=== PATIENT | female | born 1995 | race American Indian/Alaskan Native ===

== ENCOUNTER 2017-07-05 19:15 | Emergency (ER) | payer MEDICAID ==
[2017-07-05 19:46] VITALS: BP 113/68; PULSE 90; RESP 18; O2SAT 99
--- NOTE | 2017-07-05 20:16 | ED PDOC ---
HPI: Abdomen Time Seen by Provider: 07/05/17 20:03 Chief Complaint (Nursing): Abdominal Pain Chief Complaint (Provider): abdominal pain History Per: Patient History/Exam Limitations: no limitations Onset/Duration Of Symptoms: Days (3), Waxing/Waning Current Symptoms Are (Timing): Gone Now Location Of Pain/Discomfort: Diffuse Quality Of Discomfort: Sharp, Cramping Last Bowel Movement: Today Additional History Per: Patient Additional Complaint(s): 21 y/o female presents with intermittent diffuse abdominal pain x 3 days. Associated nausea. Patient describes pain as "sharp, crampy". Denies fever, vomiting, cough, congestion, chest pain, shortness of breath, palpitations, changes in bowel movements, urinary symptoms, vaginal bleeding/discharge. Abnormal Vaginal Bleeding: No Last Menstral Period: 06/13/17 Past Medical History Reviewed: Historical Data, Nursing Documentation, Vital Signs Vital Signs: Last Vital Signs Temp 98.5 F 07/05/17 20:49 Pulse 90 07/05/17 19:41 Resp 18 07/05/17 19:41 BP 113/68 07/05/17 19:41 Pulse Ox 99 07/05/17 20:16 - Medical History PMH: No Chronic Diseases - Surgical History Surgical History: No Surg Hx - Family History Family History: States: Unknown Family Hx - Home Medications Home Medications: Ambulatory Orders Medication Instructions Recorded Dicyclomine [Bentyl] 20 mg PO Q6 PRN #12 tab 11/13/16 Famotidine [Pepcid] 40 mg PO DAILY #10 tab 11/13/16 Ondansetron [Zofran] 4 mg PO Q8H #8 tab 11/13/16 Dicyclomine [Bentyl] 20 mg PO TID PRN #21 tab 07/05/17 Ondansetron ODT [Zofran ODT] 4 mg PO Q8 PRN #10 odt 07/05/17 - Allergies Allergies/Adverse Reactions: Allergies Allergy/AdvReac Type Severity Reaction Status Date / Time No Known Allergies Allergy Verified 11/13/16 13:56 Review of Systems ROS Statement: Except As Marked, All Systems Reviewed And Found Negative Gastrointestinal: Positive for: Nausea, Abdominal Pain Physical Exam - Reviewed Nursing Documentation Reviewed: Yes Vital Signs Reviewed: Yes - Physical Exam Appears: Positive for: Well, Non-toxic, No Acute Distress Head Exam: Positive for: ATRAUMATIC, NORMAL INSPECTION, NORMOCEPHALIC Skin: Positive for: Normal Color Eye Exam: Positive for: Normal appearance ENT: Positive for: Normal ENT Inspection Cardiovascular/Chest: Positive for: Regular Rate, Rhythm Respiratory: Positive for: Normal Breath Sounds Gastrointestinal/Abdominal: Positive for: Normal Exam, Bowel Sounds, Soft. Negative for: Tenderness Back: Positive for: Normal Inspection Extremity: Positive for: Normal ROM Neurologic/Psych: Positive for: Alert, Oriented - Laboratory Results Result Diagrams: 07/05/17 20:26 07/05/17 20:52 - ECG O2 Sat by Pulse Oximetry: 99 - Progress ED Course And Treament: labs, urine Patient remains symptom-free throughout ED visit; resting comfortably. Patient educated on findings, discharged with rx rosario miguel. Advised follow up PMD 2-3 days. Return to ED for worsening/concerning symptoms. Disposition - Clinical Impression Clinical Impression: Abdominal pain - Patient ED Disposition Is Patient to be Admitted: No Counseled Patient/Family Regarding: Studies Performed, Diagnosis, Need For Followup, Rx Given - Disposition Disposition: Routine/Home Disposition Time: 21:35 Condition: GOOD Prescriptions: Dicyclomine [Bentyl] 20 mg PO TID PRN #21 tab PRN Reason: Pain, Mild (1-3) Ondansetron ODT [Zofran ODT] 4 mg PO Q8 PRN #10 odt PRN Reason: Nausea/Vomiting Instructions: Abdominal Pain (ED)
[2017-07-05 20:49] VITALS: TEMP 98.5
[2017-07-05 20:59] LABS: BASO % 0.6 % (0.0-2.0); EOS # 0.1 K/uL (0.0-0.7); EOS % 1.1 % (0.0-4.0); HEMATOCRIT 38.7 % (34.0-47.0); LYMPH # 2.9 K/uL (1.0-4.3); LYMPH % 40.5 % (20.0-40.0); MEAN CELL VOLUME 70.5 fl (81.0-99.0); MEAN CORPUSCULAR HEMOGLOBIN 21.7 pg (27.0-31.0); MEAN CORPUSCULAR HGB CONC 30.8 g/dL (33.0-37.0); MEAN PLATELET VOLUME 7.8 fl (7.2-11.7); MONO # 0.7 K/uL (0.0-0.8); MONO % 9.2 % (0.0-10.0); NEUT # 3.5 K/uL (1.8-7.0); NEUT % 48.6 % (50.0-75.0); NRBC % 0.2 % (0.0-0.0); RED CELL DISTRIBUTION WIDTH 14.1 % (11.5-14.5); WHITE BLOOD COUNT 7.2 K/uL (4.8-10.8)
[2017-07-05 21:08] LABS: RBC URINE 11 /hpf (0-3); URINE BACTERIA FEW (<OCC); URINE BILIRUBIN NEGATIVE (NEGATIVE); URINE BLOOD NEGATIVE (NEGATIVE); URINE COLOR YELLOW (YELLOW); URINE GLUCOSE (UA) NEG (Normal); URINE KETONE 20 mg/dL (NEGATIVE); URINE LEUKOCYTE ESTERASE SMALL Leu/uL (Negative); URINE PROTEIN 30 mg/dL (NEGATIVE); URINE UROBILINOGEN 0.2-1.0 mg/dL (0.2-1.0); WBC URINE 3 /hpf (0-5)
[2017-07-05 21:10] LABS: ALB/GLOB RATIO 1.4 (1.0-2.1); ALKALINE PHOSPHATASE 66 U/L (38-126); ALT/SGPT 24 U/L (9-52); AST/SGOT 31 U/L (14-36); BILIRUBIN,TOTAL 0.6 mg/dl (0.2-1.3); BLOOD UREA NITROGEN 10 mg/dl (7-17); CALCIUM 10.1 mg/dL (8.4-10.2); CARBON DIOXIDE 22 mmol/L (22-30); CHLORIDE 102 mmol/L (98-107); GFR AFRICAN-AMERICAN > 60; GLUCOSE,RANDOM 119 mg/dL (65-105); LIPASE 74 U/L (23-300); POTASSIUM 3.4 MMOL/L (3.6-5.0); SODIUM 143 mmol/l (132-148); TOTAL PROTEIN 8.5 G/DL (6.3-8.2)
== END 2017-07-05 21:51 | disposition home or self-care (01) ==
LOC: H.ER 19:15
DX: R10.9 Unspecified abdominal pain (principal); R11.0 Nausea

== ENCOUNTER 2017-10-28 08:49 | Emergency (ER) | payer MEDICAID ==
[2017-10-28 08:54] VITALS: BMI 25.7
[2017-10-28 08:55] VITALS: BP 109/63; PULSE 78; RESP 16; TEMP 99; O2SAT 98
[2017-10-28] MEDS ORDERED: Sodium Chloride 0.9% 1,000 ML IV STA (10:24)
[2017-10-28] MEDS ORDERED: Morphine 4 MG/ML VIAL ONE (10:31)
[2017-10-28] MEDS ORDERED: Sodium Chloride 0.9% 50 ML IV ONE (10:35)
[2017-10-28] MEDS ORDERED: Iohexol 300 100 ML IJ ONE (10:35)
[2017-10-28] MEDS ORDERED: Morphine 4 MG/ML VIAL IV STA (10:45)
[2017-10-28 10:51] LABS: BASO % 0.5 % (0.0-2.0); EOS # 0.1 K/uL (0.0-0.7); EOS % 1.5 % (0.0-4.0); HEMOGLOBIN 11.2 g/dL (12.0-16.0); LYMPH % 33.9 % (20.0-40.0); MEAN CORPUSCULAR HEMOGLOBIN 21.8 pg (27.0-31.0); MEAN CORPUSCULAR HGB CONC 31.2 g/dL (33.0-37.0); MEAN PLATELET VOLUME 7.7 fl (7.2-11.7); MONO # 0.6 K/uL (0.0-0.8); MONO % 10.3 % (0.0-10.0); NEUT # 3.2 K/uL (1.8-7.0); NEUT % 53.8 % (50.0-75.0); NRBC % 0.1 % (0.0-0.0); RBC 5.12 Mil/uL (3.80-5.20); RED CELL DISTRIBUTION WIDTH 14.6 % (11.5-14.5)
--- NOTE | 2017-10-28 10:54 | ED PDOC ---
HPI: Abdomen Time Seen by Provider: 10/28/17 09:42 Chief Complaint (Nursing): Abdominal Pain Chief Complaint (Provider): Abdominal Pain History Per: Patient History/Exam Limitations: no limitations Onset/Duration Of Symptoms: Days (1 day ago) Current Symptoms Are (Timing): Still Present Additional Complaint(s): 22 y/o female presents to the ED complaining of left sided abdominal pain, onset of 1 day ago. Patient reports of having abdominal pain, nausea, with non- bloody vomiting and diarrhea after eating fast food yesterday. She denies any fever or urinary problems. Past Medical History Reviewed: Historical Data, Nursing Documentation, Vital Signs Vital Signs: Last Vital Signs Temp 99 F 10/28/17 08:54 Pulse 78 10/28/17 08:54 Resp 16 10/28/17 08:54 BP 109/63 10/28/17 08:54 Pulse Ox 98 10/28/17 12:18 - Medical History PMH: No Chronic Diseases - Surgical History Surgical History: No Surg Hx - Family History Family History: States: Unknown Family Hx - Social History Current smoker - smoking cessation education provided: No Ex-Smoker (has not smoked in the last 12 months): No Alcohol: None Drugs: Denies - Home Medications Home Medications: Ambulatory Orders Medication Instructions Recorded Dicyclomine [Bentyl] 20 mg PO Q6 PRN #12 tab 11/13/16 Famotidine [Pepcid] 40 mg PO DAILY #10 tab 11/13/16 Ondansetron [Zofran] 4 mg PO Q8H #8 tab 11/13/16 Dicyclomine [Bentyl] 20 mg PO TID PRN #21 tab 07/05/17 Ondansetron ODT [Zofran ODT] 4 mg PO Q8 PRN #10 odt 07/05/17 Dicyclomine [Bentyl] 20 mg PO QID PRN #10 tab 10/28/17 Ondansetron ODT [Zofran ODT] 4 mg PO Q8H PRN #20 odt 10/28/17 - Allergies Allergies/Adverse Reactions: Allergies Allergy/AdvReac Type Severity Reaction Status Date / Time No Known Allergies Allergy Verified 11/13/16 13:56 Review of Systems ROS Statement: Except As Marked, All Systems Reviewed And Found Negative Constitutional: Negative for: Fever Gastrointestinal: Positive for: Nausea, Vomiting, Diarrhea. Negative for: Hematochezia, Hematemesis Genitourinary Female: Negative for: Dysuria, Frequency, Incontinence, Hematuria Physical Exam - Reviewed Nursing Documentation Reviewed: Yes Vital Signs Reviewed: Yes - Physical Exam Appears: Positive for: Non-toxic, No Acute Distress Head Exam: Positive for: ATRAUMATIC Skin: Positive for: Normal Color, Warm Eye Exam: Positive for: Normal appearance, EOMI, PERRL ENT: Positive for: Normal ENT Inspection Neck: Positive for: Normal, Painless ROM, Supple Cardiovascular/Chest: Positive for: Regular Rate, Rhythm. Negative for: Murmur Respiratory: Positive for: Normal Breath Sounds. Negative for: Respiratory Distress Gastrointestinal/Abdominal: Positive for: Normal Exam, Soft, Tenderness (to LUQ and LLQ ). Negative for: Rebound Back: Positive for: Normal Inspection Extremity: Positive for: Normal ROM. Negative for: Pedal Edema, Deformity Neurologic/Psych: Positive for: Alert, Oriented. Negative for: Motor/Sensory Deficits - Laboratory Results Result Diagrams: 10/28/17 10:30 10/28/17 10:30 - ECG O2 Sat by Pulse Oximetry: 98 (RA) Pulse Ox Interpretation: Normal Medical Decision Making Medical Decision Making: Time: --10:24 Impression: --Gastroenteritis vs. Colitis Plan: --CT ABD and Pelvis w IV Contrast --Labs --Lipase --Ed Urine Dip --ED Urine preg --morphine 2mg IV --IV Fluids --Zofran Inj 4mg IV --urinalysis Reassess --12:06 PROCEDURE: CT Abdomen and Pelvis with contrast FINDINGS: LOWER THORAX: Unremarkable. LIVER: Unremarkable. No gross lesion or ductal dilatation. GALLBLADDER AND BILE DUCTS: Unremarkable. PANCREAS: Unremarkable. No gross lesion or ductal dilatation. SPLEEN: Unremarkable. ADRENALS: Unremarkable. No mass. KIDNEYS AND URETERS: Unremarkable. No hydronephrosis. No solid mass. VASCULATURE: Unremarkable. No aortic aneurysm. BOWEL: Scattered colonic diverticulae. No evidence of diverticulitis. No bowel obstruction. No mural thickening. APPENDIX: Normal appendix. PERITONEUM: Trace fluid in cul-de-sac. No generalized ascites. LYMPH NODES: No significantly enlarged retroperitoneal or pelvic lymph nodes. Several shotty subcentimeter nodes are identified in the small bowel mesentery, incidentally. BLADDER: Nondistended REPRODUCTIVE: Normal uterus BONES: No acute fracture. OTHER FINDINGS: None. IMPRESSION: No acute abnormality. Trace fluid in cul-de-sac, nonspecific. Scribe Attestation: Documented by Brian Camahco acting as a scribe for Ana Laura Regalado MD. Disposition - Clinical Impression Clinical Impression: Gastroenteritis - Disposition Referrals: [facility] [Outside] Disposition: Routine/Home Disposition Time: 13:07 Condition: STABLE Prescriptions: Dicyclomine [Bentyl] 20 mg PO QID PRN #10 tab PRN Reason: Pain, Moderate (4-7) Ondansetron ODT [Zofran ODT] 4 mg PO Q8H PRN #20 odt PRN Reason: Nausea/Vomiting Instructions: Gastroenteritis (ED) Forms: [facility] (Kyrgyz)
[2017-10-28 11:03] LABS: ALB/GLOB RATIO 1.2 (1.0-2.1); ALBUMIN 4.3 g/dL (3.5-5.0); ALT/SGPT 24 U/L (9-52); AST/SGOT 21 U/L (14-36); BLOOD UREA NITROGEN 8 mg/dl (7-17); GFR AFRICAN-AMERICAN > 60; GFR NON-AFRICAN AMERICAN > 60; LIPASE 74 U/L (23-300)
[2017-10-28 11:09] LABS: SQUAMOUS EPITHIAL 8 /hpf (0-5); URINE BACTERIA RARE (<OCC); URINE BILIRUBIN NEGATIVE (NEGATIVE); URINE BLOOD NEGATIVE (NEGATIVE); URINE CLARITY CLOUDY (Clear); URINE COLOR YELLOW (YELLOW); URINE GLUCOSE (UA) NEG (Normal); URINE LEUKOCYTE ESTERASE NEG Leu/uL (Negative); URINE NITRATE NEGATIVE (NEGATIVE); URINE PROTEIN NEGATIVE (NEGATIVE); URINE UROBILINOGEN 0.2-1.0 mg/dL (0.2-1.0)
--- NOTE | 2017-10-28 12:08 | CT ---
PROCEDURE: CT Abdomen and Pelvis with contrast HISTORY: LUQ pain COMPARISON: 11/13/2016 TECHNIQUE: Contrast dose: 98 mL Omnipaque 300 Radiation dose: Total exam DLP = 862.77 mGy-cm. This CT exam was performed using one or more of the following dose reduction techniques: Automated exposure control, adjustment of the mA and/or kV according to patient size, and/or use of iterative reconstruction technique. FINDINGS: LOWER THORAX: Unremarkable. LIVER: Unremarkable. No gross lesion or ductal dilatation. GALLBLADDER AND BILE DUCTS: Unremarkable. PANCREAS: Unremarkable. No gross lesion or ductal dilatation. SPLEEN: Unremarkable. ADRENALS: Unremarkable. No mass. KIDNEYS AND URETERS: Unremarkable. No hydronephrosis. No solid mass. VASCULATURE: Unremarkable. No aortic aneurysm. BOWEL: Scattered colonic diverticulae. No evidence of diverticulitis. No bowel obstruction. No mural thickening. APPENDIX: Normal appendix. PERITONEUM: Trace fluid in cul-de-sac. No generalized ascites. LYMPH NODES: No significantly enlarged retroperitoneal or pelvic lymph nodes. Several shotty subcentimeter nodes are identified in the small bowel mesentery, incidentally. BLADDER: Nondistended REPRODUCTIVE: Normal uterus BONES: No acute fracture. OTHER FINDINGS: None. IMPRESSION: No acute abnormality. Trace fluid in cul-de-sac, nonspecific.
== END 2017-10-28 13:23 | disposition home or self-care (01) ==
LOC: H.ER 08:49
DX: K52.9 Noninfective gastroenteritis and colitis, unspecified (principal)
CPT/HCPCS: 74177; 80053; 81003; 81025; 83690; 85025; 96374; 96375; 99282; J2270; J2405; J7040; Q9967

== ENCOUNTER 2018-04-30 16:14 | Emergency (ER) | payer MEDICAID ==
[2018-04-30 16:14] VITALS: BMI 25.7
[2018-04-30 16:45] VITALS: BP 111/70; PULSE 86; RESP 16; TEMP 98.5; O2SAT 100
[2018-04-30] MEDS ORDERED: Sodium Chloride 0.9% 1,000 ML IV STA (18:28)
[2018-04-30 19:03] LABS: BASO % 0.5 % (0.0-2.0); EOS # 0.1 K/uL (0.0-0.7); EOS % 1.4 % (0.0-4.0); HEMOGLOBIN 12.1 g/dL (12.0-16.0); LYMPH # 2.8 K/uL (1.0-4.3); LYMPH % 38.8 % (20.0-40.0); MEAN CELL VOLUME 70.5 fl (81.0-99.0); MEAN CORPUSCULAR HEMOGLOBIN 21.9 pg (27.0-31.0); MEAN PLATELET VOLUME 7.7 fl (7.2-11.7); MONO % 13.4 % (0.0-10.0); NEUT # 3.3 K/uL (1.8-7.0); NEUT % 45.9 % (50.0-75.0); RBC 5.53 Mil/uL (3.80-5.20); RED CELL DISTRIBUTION WIDTH 14.6 % (11.5-14.5); WHITE BLOOD COUNT 7.2 K/uL (4.8-10.8)
[2018-04-30 19:20] LABS: ALB/GLOB RATIO 1.3 (1.0-2.1); ALBUMIN 4.9 g/dL (3.5-5.0); ALT/SGPT 22 U/L (9-52); AST/SGOT 23 U/L (14-36); BLOOD UREA NITROGEN 11 mg/dl (7-17); CALCIUM 9.8 mg/dL (8.4-10.2); GFR AFRICAN-AMERICAN > 60; GFR NON-AFRICAN AMERICAN > 60
--- NOTE | 2018-04-30 20:07 | ED PDOC ---
HPI: Headache Time Seen by Provider: 04/30/18 17:06 Chief Complaint (Nursing): Headache Chief Complaint (Provider): Left sided headache History Per: Patient History/Exam Limitations: no limitations Onset/Duration Of Symptoms: Days Current Symptoms Are (Timing): Still Present Quality: Dull, Pressure Preceeding Symptoms: None Associated Symptoms: Nausea. denies: Photophobia, Blurred Vision, Vomiting, Extremity Weakness Additional Complaint(s): 22 yo female with no medical problems presents with left sided headache. Pt states she was seen by PMD and given firocet but states it is not helping. Pt also reports mild nausea. Pt states she had similar in the past when she was . Pt reports no sexual activity since menses. Pt also had test by PMD and at home which were both negative. Past Medical History Reviewed: Historical Data, Nursing Documentation, Vital Signs Vital Signs: Last Vital Signs Temp 98.5 F 04/30/18 16:42 Pulse 86 04/30/18 16:42 Resp 16 04/30/18 16:42 BP 111/70 04/30/18 16:42 Pulse Ox 100 04/30/18 16:42 - Medical History PMH: No Chronic Diseases - Surgical History Surgical History: No Surg Hx - Family History Family History: States: Unknown Family Hx - Living Arrangements Living Arrangements: With Family - Social History Current smoker - smoking cessation education provided: No - Home Medications Home Medications: Ambulatory Orders Medication Instructions Recorded Dicyclomine [Bentyl] 20 mg PO Q6 PRN #12 tab 11/13/16 Famotidine [Pepcid] 40 mg PO DAILY #10 tab 11/13/16 Ondansetron [Zofran] 4 mg PO Q8H #8 tab 11/13/16 Dicyclomine [Bentyl] 20 mg PO TID PRN #21 tab 07/05/17 Ondansetron ODT [Zofran ODT] 4 mg PO Q8 PRN #10 odt 07/05/17 Dicyclomine [Bentyl] 20 mg PO QID PRN #10 tab 10/28/17 Ondansetron ODT [Zofran ODT] 4 mg PO Q8H PRN #20 odt 10/28/17 Metoclopramide [Reglan] 10 mg PO TID PRN #10 tab 04/30/18 - Allergies Allergies/Adverse Reactions: Allergies Allergy/AdvReac Type Severity Reaction Status Date / Time No Known Allergies Allergy Verified 11/13/16 13:56 Review of Systems ROS Statement: Except As Marked, All Systems Reviewed And Found Negative Constitutional: Negative for: Fever, Chills Neurological: Positive for: Headache. Negative for: Weakness Physical Exam - Reviewed Nursing Documentation Reviewed: Yes Vital Signs Reviewed: Yes - Physical Exam Appears: Positive for: Well, Non-toxic, No Acute Distress Head Exam: Positive for: ATRAUMATIC, NORMAL INSPECTION, NORMOCEPHALIC Skin: Positive for: Normal Color, Warm, DRY Eye Exam: Positive for: Normal appearance ENT: Positive for: Normal ENT Inspection Neck: Positive for: Normal, Painless ROM Respiratory: Negative for: Accessory Muscle Use, Respiratory Distress Gastrointestinal/Abdominal: Negative for: Tenderness Back: Positive for: Normal Inspection Extremity: Positive for: Normal ROM Neurologic/Psych: Positive for: Alert, life skills coach II-XII, Oriented, Mood/Affect, Cerebellar Tests, Gait. Negative for: Motor/Sensory Deficits, Aphasia, Facial Droop - Laboratory Results Result Diagrams: 04/30/18 19:00 04/30/18 19:00 - ECG O2 Sat by Pulse Oximetry: 100 Disposition - Clinical Impression Clinical Impression: Headache - Patient ED Disposition Is Patient to be Admitted: No - Disposition Referrals: Non [facility] Provider, [Primary Care Provider] - Disposition: Routine/Home Disposition Time: 20:03 Condition: STABLE Prescriptions: Metoclopramide [Reglan] 10 mg PO TID PRN #10 tab PRN Reason: Headache Instructions: Cluster Headache (DC)
== END 2018-04-30 20:08 | disposition home or self-care (01) ==
LOC: SUPCPDRO 16:14 → H.ER 16:14
DX: R51 Headache (principal)
CPT/HCPCS: 80053; 81025; 85025; 96374; 99285; J2765; J7030

== ENCOUNTER 2018-10-11 19:07 | Emergency (ER) | payer SELFPAY ==
[2018-10-11 19:07] VITALS: BMI 25.7
[2018-10-11] MEDS ORDERED: Sodium Chloride 0.9% 1,000 ML IV STA (20:54)
--- NOTE | 2018-10-11 21:59 | ED PDOC ---
HPI: Altered Mental Status Time Seen by Provider: 10/11/18 20:10 Chief Complaint (Nursing): Fever Chief Complaint (Provider): Fever History Per: Patient Onset/Duration Of Symptoms: Hrs Current Symptoms Are (Timing): Still Present Additional Complaint(s): Patient is a 23 y/o female with no significant PMHx who presents to the ED for evaluation of dizziness and nausea, onset this morning. The patient woke up and went to work feeling unwell. The patient gradually developed body aches. 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 At work the patient measured her temperature at 100. The patient went home and fell asleep. Patient awoke continuing to feel dizzy, nauseous, with a mild sore throat, and mild nasal congestion. Patient reports she has been unable to drink much today. Patient denies a cough, SOB, CP, palpitations, and diarrhea. Of note, patient has not received flu vaccine. PCP: Dr. Mario Burrows Past Medical History Reviewed: Historical Data, Nursing Documentation, Vital Signs Vital Signs: Last Vital Signs Temp 102.8 F H 10/11/18 21:28 Pulse 113 H 10/11/18 19:44 Resp 16 10/11/18 19:44 BP 113/74 10/11/18 19:44 Pulse Ox 100 10/11/18 19:44 - Medical History PMH: No Chronic Diseases - Surgical History Surgical History: No Surg Hx - Family History Family History: States: Unknown Family Hx - Immunization History Hx Influenza Vaccination: No - Home Medications Home Medications: Ambulatory Orders Medication Instructions Recorded Dicyclomine [Bentyl] 20 mg PO Q6 PRN #12 tab 11/13/16 Famotidine [Pepcid] 40 mg PO DAILY #10 tab 11/13/16 Ondansetron [Zofran] 4 mg PO Q8H #8 tab 11/13/16 Dicyclomine [Bentyl] 20 mg PO TID PRN #21 tab 07/05/17 Ondansetron ODT [Zofran ODT] 4 mg PO Q8 PRN #10 odt 07/05/17 Dicyclomine [Bentyl] 20 mg PO QID PRN #10 tab 10/28/17 Ondansetron ODT [Zofran ODT] 4 mg PO Q8H PRN #20 odt 10/28/17 Metoclopramide [Reglan] 10 mg PO TID PRN #10 tab 04/30/18 Acetaminophen [Tylenol 325mg tab] 650 mg PO Q6 PRN 7 Days tab 10/11/18 Ibuprofen [Motrin Tab] 600 mg PO Q6 PRN 7 Days tab 10/11/18 Oseltamivir Phosphate [Tamiflu] 75 mg PO BID 5 Days capsule 10/11/18 - Allergies Allergies/Adverse Reactions: Allergies Allergy/AdvReac Type Severity Reaction Status Date / Time No Known Allergies Allergy Verified 10/11/18 19:44 Review of Systems ROS Statement: Except As Marked, All Systems Reviewed And Found Negative Constitutional: Positive for: Other (Body Aches) ENT: Positive for: Nose Congestion (Mild), Throat Pain (Sore) Cardiovascular: Negative for: Chest Pain, Palpitations Respiratory: Negative for: Cough, Shortness of Breath Gastrointestinal: Positive for: Nausea (Persistent). Negative for: Vomiting, Diarrhea Neurological: Positive for: Dizziness Physical Exam - Reviewed Nursing Documentation Reviewed: Yes Vital Signs Reviewed: Yes - Physical Exam Appears: Positive for: Uncomfortable Head Exam: Positive for: ATRAUMATIC Skin: Positive for: Normal Color Eye Exam: Positive for: Normal appearance ENT: Positive for: TM Is/Are (Obscured by wax bilaterally), Pharyngeal Erythema (Mild). Negative for: Tonsillar Exudate Neck: Positive for: Normal Cardiovascular/Chest: Positive for: Regular Rate, Rhythm Respiratory: Positive for: Normal Breath Sounds Gastrointestinal/Abdominal: Positive for: Normal Exam Extremity: Positive for: Normal ROM Neurologic/Psych: Positive for: Alert, Oriented - ECG O2 Sat by Pulse Oximetry: 100 (RA) Pulse Ox Interpretation: Normal Medical Decision Making Medical Decision Making: Time: 2053 Plan: IV Fluids [Tylenol 325 Tab] 650 mg PO Influenza A B Rapid Strep Group A Antigen Scribe Attestation: Documented by Tristan Miner, acting as a scribe for Zoila BARNES. Provider Scribe Attestation: All medical record entries made by the Scribe were at my direction and personally dictated by me. I have reviewed the chart and agree that the record accurately reflects my personal performance of the history, physical exam, medical decision making, and the department course for this patient. I have also personally directed, reviewed, and agree with the discharge instructions and disposition 22:00: Influenza A +, Tamiflu 75mg PO x 1 ordered. 23:15: feeling better, fever defervesced to 99.1F. Stable for D/C home with return instructions given. Disposition - Clinical Impression Clinical Impression: Influenza A - Patient ED Disposition Is Patient to be Admitted: No Counseled Patient/Family Regarding: Studies Performed, Diagnosis, Need For Followup - Disposition Disposition: Routine/Home Disposition Time: 23:34 Condition: STABLE Additional Instructions: Return to ER if you develop shortness of breath or inability to keep liquids down. F/u with your primary care doctor as needed. Take Tylenol and Ibuprofen for fevers and body aches. Take full course of Tamiflu to reduce your symptoms. Avoid close contact with others, especially children until your symptoms improve. Prescriptions: Acetaminophen [Tylenol 325mg tab] 650 mg PO Q6 PRN 7 Days tab PRN Reason: Pain, Moderate (4-7) Ibuprofen [Motrin Tab] 600 mg PO Q6 PRN 7 Days tab PRN Reason: Fever >100.4 F Oseltamivir Phosphate [Tamiflu] 75 mg PO BID 5 Days capsule Instructions: Flu, Adult (DC) Forms: [facility] (Northern Irish), [facility] ED School/Work Excuse Print Language: ROMANIAN
[2018-10-11 23:27] VITALS: BP 114/60; PULSE 94; RESP 18; TEMP 99.1
[2018-10-26 16:28] VITALS: O2SAT 100
== END 2018-10-11 23:33 | disposition home or self-care (01) ==
LOC: H.ER 19:07
DX: J11.1 Influenza due to unidentified influenza virus with other respiratory manifestations (principal)
CPT/HCPCS: 87070; 87430; 87804; 96360; 99285; J7030

== ENCOUNTER 2019-01-01 08:25 | Emergency (ER) | payer MEDICAID ==
[2019-01-01 08:25] VITALS: BMI 25.7
[2019-01-01 08:33] VITALS: RESP 18
--- NOTE | 2019-01-01 09:11 | ED PDOC ---
HPI: General Adult Time Seen by Provider: 01/01/19 08:55 Chief Complaint (Nursing): Flu-like Symptoms History Per: Patient Onset/Duration Of Symptoms: Days (2) Current Symptoms Are (Timing): Still Present Severity: Moderate Additional Complaint(s): Body aches headache and sore throat x 2 days. Denies fever or cough. Had flu earlier this year. Past Medical History Vital Signs: Last Vital Signs Temp 98.4 F 01/01/19 08:31 Pulse 106 H 01/01/19 08:31 Resp 18 01/01/19 08:31 BP 119/79 01/01/19 08:31 Pulse Ox 99 01/01/19 08:31 - Medical History PMH: No Chronic Diseases Denies: Chronic Kidney Disease - Family History Family History: States: Unknown Family Hx - Immunization History Hx Influenza Vaccination: No - Home Medications Home Medications: Ambulatory Orders Medication Instructions Recorded Dicyclomine [Bentyl] 20 mg PO Q6 PRN #12 tab 11/13/16 Famotidine [Pepcid] 40 mg PO DAILY #10 tab 11/13/16 Ondansetron [Zofran] 4 mg PO Q8H #8 tab 11/13/16 Dicyclomine [Bentyl] 20 mg PO TID PRN #21 tab 07/05/17 Ondansetron ODT [Zofran ODT] 4 mg PO Q8 PRN #10 odt 07/05/17 Dicyclomine [Bentyl] 20 mg PO QID PRN #10 tab 10/28/17 Ondansetron ODT [Zofran ODT] 4 mg PO Q8H PRN #20 odt 10/28/17 Metoclopramide [Reglan] 10 mg PO TID PRN #10 tab 04/30/18 Acetaminophen [Tylenol 325mg tab] 650 mg PO Q6 PRN 7 Days tab 10/11/18 Ibuprofen [Motrin Tab] 600 mg PO Q6 PRN 7 Days tab 10/11/18 Oseltamivir Phosphate [Tamiflu] 75 mg PO BID 5 Days capsule 10/11/18 Naproxen [Naprosyn] 500 mg PO Q12H #20 tab 01/01/19 Oseltamivir Cap [Tamiflu] 75 mg PO BID #10 cap 01/01/19 - Allergies Allergies/Adverse Reactions: Allergies Allergy/AdvReac Type Severity Reaction Status Date / Time No Known Allergies Allergy Verified 10/11/18 19:44 Review of Systems Constitutional: Positive for: Chills, Malaise. Negative for: Fever ENT: Positive for: Throat Pain Respiratory: Negative for: Cough Gastrointestinal: Negative for: Vomiting, Diarrhea Physical Exam - Physical Exam Appears: Positive for: Non-toxic, No Acute Distress Skin: Positive for: Normal Color, Warm, DRY Eye Exam: Positive for: Normal appearance ENT: Positive for: Pharyngeal Erythema. Negative for: Tonsillar Exudate Neck: Positive for: Normal, Painless ROM Cardiovascular/Chest: Positive for: Regular Rate, Rhythm Respiratory: Positive for: CNT, Normal Breath Sounds Back: Positive for: Normal Inspection Extremity: Positive for: Normal ROM Neurological/Psych: Positive for: Awake, Alert, Normal Tone - ECG O2 Sat by Pulse Oximetry: 99 Medical Decision Making Medical Decision Makin Rapid strep negative 1016 Rapid flu positive for influenza A Disposition - Clinical Impression Clinical Impression: Influenza A - Patient ED Disposition Is Patient to be Admitted: No Counseled Patient/Family Regarding: Studies Performed, Diagnosis, Need For Followup, Rx Given - Disposition Referrals: [facility] [Outside] Disposition: Routine/Home Disposition Time: 10:17 Condition: FAIR Prescriptions: Naproxen [Naprosyn] 500 mg PO Q12H #20 tab Oseltamivir Cap [Tamiflu] 75 mg PO BID #10 cap Instructions: Flu Forms: [facility] (Salvadorean)
[2019-01-01 10:29] VITALS: BP 113/72; PULSE 96; TEMP 98.3; O2SAT 100
== END 2019-01-01 10:25 | disposition home or self-care (01) ==
LOC: H.ER 08:25
DX: J09.X2 Influenza due to identified novel influenza A virus with other respiratory manifestations (principal)